=== PATIENT | male | born 1950 | race Two or more races ===

== ENCOUNTER 2019-03-31 06:30 | Day surgery (SDC) | payer OTHER | END 2019-03-31 11:45 | disposition home or self-care (01) | LOC: AMB-ENDOS 06:30 → EDBD 10:00 → AMB-ENDOS 10:00 | DX: D12.8 Benign neoplasm of rectum (principal); K64.1 Second degree hemorrhoids; K57.30 Diverticulosis of large intestine without perforation or abscess without bleeding ==